=== PATIENT | male | born 1975 | race Two or more races ===

== ENCOUNTER 2020-03-16 07:30 | Emergency (ER) | payer MEDICAID ==
[~2020-03-16] VITALS: Ht 175.3 cm; Wt 72.6 kg
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
[2020-03-16 07:36] VITALS: BP 116/70
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
[2020-03-16] MEDS ORDERED: Acetaminophen 500mg (ES) tab ORAL ONE (07:45)
[2020-03-16] MEDS ORDERED: Ketorolac 30mg Inj IM ONE (07:45)
[2020-03-16] MEDS ORDERED: Bacitracin Oint UD TOPIC ONE (07:45)
--- NOTE | 2020-03-16 08:40 | NUR ---
ED Nurse Note: pt left for CT
--- NOTE | 2020-03-16 08:58 | NUR ---
ED Nurse Note: pt returned from CT
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
--- NOTE | 2020-03-16 09:58 | NUR ---
ED Nurse Note: Pt is resting with eyes closed, breathing is even and unlabored.
[2020-03-16 09:59] VITALS: BP 114/68
[2020-03-16] MEDS ORDERED: BACITRACIN15 GM TOPIC (09:59)
[2020-03-16] MEDS ORDERED: IBUPROFEN600 M1 ORAL (09:59)
[2020-03-16] MEDS ORDERED: TYLENOL325 MG ORAL (09:59)
[2020-03-16 10:14] VITALS: BP 124/82
--- NOTE | 2020-03-16 10:14 | NUR ---
ER DISCHARGE NOTE: Patient is cleared to be discharged per ERMD, pt is aox4, on room air, with stable vital signs. pt was given dc and prescription instructions, pt was able to verbalize understanding, pt id bandremoved. pt is able to ambulate with steady gait. pt took all belongings.
== END 2020-03-16 12:15 | disposition other institution (70) ==
LOC: EDBD 07:30 → EMR 07:42
DX: S09.93XA Unspecified injury of face, initial encounter (principal); S20.229A Contusion of unspecified back wall of thorax, initial encounter; F17.200 Nicotine dependence, unspecified, uncomplicated; F10.10 Alcohol abuse, uncomplicated; F15.90 Other stimulant use, unspecified, uncomplicated; Y04.2XXA Assault by strike against or bumped into by another person, initial encounter; Y93.9 Activity, unspecified; Y92.9 Unspecified place or not applicable
CPT/HCPCS: 70450; 72128; 96372; J1885; Z7502; 99284